=== PATIENT | female | born 1960 | race Two or more races ===

== ENCOUNTER 2020-10-04 16:46 | Inpatient (IN) | payer MEDICAID ==
[~2020-10-04] VITALS: Ht 160 cm; Wt 94.3 kg
--- NOTE | 2020-10-04 17:22 | NUR ---
[facility] B[facility]. NON VERBAL. VENT AND TRACH. BED BOUND. BROUGHT IN FOR COFFEE GROUND EMEMSIS AND BLACK TARRY STOOL. PT IS NOTED WITH DRIED COFFEEGROUND EMESIS ON HER CHEEK. PT ALSO PRESENTED WITH BLACK TARRY STOOL. PT IS NOTED WITH EDEMA ON HER EXTREMETIES. PT IS A VENT DEPENDENT, GT INTACT. WAS AT THE BEDSIDE FOR EVAL. PT ALREADY HAVE A MID LINE ON HER KATHI AND IV LINE ON RFA. PT IN ON MONITOR.
--- NOTE | 2020-10-04 18:22 | NUR ---
DRU, DAUGHTER UPDATTED REGARDING PT
[2020-10-04] MEDS ORDERED: NA P133E RC (18:25)
[2020-10-04] MEDS ORDERED: INSU100V7 SQ (18:25)
[2020-10-04] MEDS ORDERED: MIDO5TAB4 GT (18:25)
[2020-10-04] MEDS ORDERED: BISA10SU11 RC (18:25)
[2020-10-04] MEDS ORDERED: ENOX40DI SQ (18:25)
[2020-10-04] MEDS ORDERED: CHLO473M5 MM (18:25)
[2020-10-04] MEDS ORDERED: FAMO20TA8 GT (18:25)
[2020-10-04] MEDS ORDERED: CEFT2.5V IV (18:25)
[2020-10-04] MEDS ORDERED: INSU100V39 SQ (18:25)
[2020-10-04] MEDS ORDERED: MAGN400O6 GT (18:25)
[2020-10-04] MEDS ORDERED: SENN-261 GT (18:25)
[2020-10-04] MEDS ORDERED: NUT.237L31 GT (18:25)
[2020-10-04] MEDS ORDERED: ACET-868 GT (18:25)
[2020-10-04] MEDS ORDERED: CRAN3875 GT (18:25)
[2020-10-04] MEDS ORDERED: MULT-447 GT (18:25)
[2020-10-04] MEDS ORDERED: IPRA4AER IH ×2 (18:25)
[2020-10-04] MEDS ORDERED: ASCO-352 GT (18:25)
[2020-10-04] MEDS ORDERED: ACET-2605 GT (18:25)
[2020-10-04] MEDS ORDERED: LORA-258 GT (18:25)
[2020-10-04] MEDS ORDERED: ZINC1CAP2 GT (18:25)
[2020-10-04 18:59] LABS: BASOPHILS % (AUTO) 0.7 % (0.0-2.0); EOSINOPHILS % (AUTO) 2.9 % (0.0-6.0); HEMATOCRIT 24 % (33-45); HEMOGLOBIN 7.8 g/dL (11.5-14.8); LYMPHOCYTES # (AUTO) 0.9 /CMM (0.8-4.8); LYMPHOCYTES % (AUTO) 14.1 % (20.0-44.0); MEAN CORPUSCULAR HGB CONC 32 g/dl (31.0-36.0); MEAN CORPUSCULAR VOLUME 102 fL (82-100); MONOCYTES # (AUTO) 0.7 /CMM (0.1-1.30); MONOCYTES % (AUTO) 10.5 % (2.0-12.0); NEUTROPHILS # (AUTO) 4.8 /CMM (1.8-8.9); NEUTROPHILS % (AUTO) 71.8 % (43.0-81.0); PLATELET COUNT (AUTO) 117 /CMM (150-450); RED BLOOD CELL COUNT(AUTO) 2.35 MIL/uL (4.0-5.2); WHITE BLOOD COUNT (AUTO) 6.6 K/uL (4.3-11.0)
[2020-10-04] MEDS ORDERED: IV NS 0.9% 500 ML BAG IV ONE ×2 (19:30→21:30)
[2020-10-04 19:46] LABS: CALCIUM, SERUM 8.3 mg/dL (8.5-10.1); POTASSIUM 4.4 mmol/L (3.5-5.1)
[2020-10-04 19:51] LABS: BILIRUBIN,DIRECT 0.1 mg/dL (0.0-0.2); BILIRUBIN,TOTAL 0.3 mg/dL (0.2-1.0); TOTAL PROTEIN, SERUM 5.2 g/dL (6.4-8.2)
[2020-10-04 19:54] LABS: ALBUMIN 1.2 g/dL (3.4-5.0)
--- NOTE | 2020-10-04 20:07 | NUR ---
RT pt received on mechanical vent with current vent settings. trached, shiley 5 xlt. vent plugged in to red outlet. alarms on and audible. airway patent. trach care performed. trach tie secure. brown secretions suctioned via trach, pt vomited yard spotter. no sob, no resp distress. will continue to monitor
[2020-10-04] MEDS ORDERED: CEFEPIME 1 GM VIAL IM STA (20:29)
[2020-10-04] MEDS ORDERED: VANCOMYCIN 1 GM in IV D5W 250 ML IV PRN (20:30)
[2020-10-04] MEDS ORDERED: CEFTRIAXONE 1 G in IV D5W 50 ML IV SCH (20:30)
--- NOTE | 2020-10-04 20:30 | NUR ---
REC'D NEG COVID RESULTS. AWARE
[2020-10-04 20:33] LABS: EOSINOPHILS % (MANUAL) 3 % (0-4); LYMPHOCYTES % (MANUAL) 11 % (16-48); MONOCYTES % (MANUAL) 12 % (0-11.0); NEUTROPHILS % (MANUAL) 74 (42-76)
[2020-10-04] MEDS ORDERED: CEFEPIME 1 GM VIAL ONE (20:44)
[2020-10-04] MEDS ORDERED: CEFEPIME 1 GM in IV D5W 50 ML IV STA (20:45)
[2020-10-04] MEDS ORDERED: MAG HYDROX/AL HYDROX/SIMETH 30 ML UDC PO PRN (21:00)
[2020-10-04] MEDS ORDERED: DEXTROSE 50%-WATER 50 ML DISP.SYRIN IV PRN (21:00)
[2020-10-04] MEDS ORDERED: BISACODYL SUPP (10 MG) 10 MG/SUPP.RECT SUPP.RECT RC PRN (21:00)
[2020-10-04] MEDS ORDERED: Z GUARD REMEDY 2 OZ OINT TP PRN (21:00)
[2020-10-04] MEDS ORDERED: MAGNESIUM HYDROXIDE 30 ML UDC GT PRN (21:00)
[2020-10-04] MEDS ORDERED: ACETAMINOPHEN 325 MG TABLET PO PRN (21:00)
[2020-10-04] MEDS ORDERED: CEFTAZIDIME/AVIBACTAM 2.5 GM VIAL IV SCH (21:00)
[2020-10-04] MEDS ORDERED: MORPHINE SULFATE INJ 2 MG/ML DISP.SYRIN IV PRN (21:00)
[2020-10-04] MEDS ORDERED: MAGNESIUM HYDROXIDE 30 ML UDC PO PRN (21:00)
[2020-10-04] MEDS ORDERED: ACETAMINOPHEN ES 500 MG TABLET PO PRN (21:00)
[2020-10-04] MEDS ORDERED: ACETAMINOPHEN 325 MG TABLET MC PRN (21:00)
[2020-10-04] MEDS ORDERED: NA PHOS,M-B/NA PHOS,DI-BA 1 EA ENEMA RC PRN (21:00)
[2020-10-04] MEDS ORDERED: MEROPENEM 500 MG in IV NS 0.9% 50 ML IV SCH (21:06)
--- NOTE | 2020-10-04 21:38 | NUR ---
MID LINE INSERTED BY DIANE PICC LINE NURSE.
--- NOTE | 2020-10-04 21:40 | NUR ---
BLOOD CULTURE DRAWN AND SENT TO LAB
[2020-10-04] MEDS ORDERED: PANTOPRAZOLE 40 MG VIAL ONE (21:42)
[2020-10-04] MEDS: PANTOPRAZOLE 40 MG VIAL IV SCH (21:51)
[2020-10-04] MEDS: IV D5/0.45 NACL 1,000 ML IV SCH (21:51)
[2020-10-04] MEDS: SENNOSIDES 8.6 MG TABLET GT SCH (22:00)
[2020-10-04] MEDS: BLOOD SUGAR DIAGNOSTIC 1 EACH STRIP VI SCH (22:21)
[2020-10-04] MEDS: MEROPENEM 1 G in IV NS 0.9% 100 ML IV SCH (22:25)
[2020-10-04] MEDS: *INSULIN REGULAR(HUMULIN R)HUM 100 UNIT/ML VIAL SQ PRN (22:43)
[2020-10-05] MEDS ORDERED: IPRATROPIUM/ALBUTEROL INHALER IH SCH
--- NOTE | 2020-10-05 01:56 | NUR ---
D/C COMBIVENT PER SAKINA TORSION SPRING COILING MACHINE SETTER. MEDICATION NOT COMPATIBLE, PT ON VENT.
[2020-10-05 04:14] LABS: BASOPHILS % (AUTO) 0.6 % (0.0-2.0); EOSINOPHILS % (AUTO) 1.5 % (0.0-6.0); HEMATOCRIT 25 % (33-45); HEMOGLOBIN 8.1 g/dL (11.5-14.8); LYMPHOCYTES # (AUTO) 0.9 /CMM (0.8-4.8); LYMPHOCYTES % (AUTO) 12.7 % (20.0-44.0); MEAN CORPUSCULAR HGB CONC 33 g/dl (31.0-36.0); MEAN CORPUSCULAR VOLUME 102 fL (82-100); MONOCYTES # (AUTO) 0.7 /CMM (0.1-1.30); MONOCYTES % (AUTO) 10.2 % (2.0-12.0); NEUTROPHILS # (AUTO) 5.1 /CMM (1.8-8.9); PLATELET COUNT (AUTO) 114 /CMM (150-450); RED BLOOD CELL COUNT(AUTO) 2.45 MIL/uL (4.0-5.2); WHITE BLOOD COUNT (AUTO) 6.9 K/uL (4.3-11.0)
[2020-10-05 04:30] LABS: CALCIUM, SERUM 8.3 mg/dL (8.5-10.1); CREATININE 1.1 mg/dL (0.6-1.3); PHOSPHORUS 2.3 mg/dL (2.5-4.9); POTASSIUM 3.9 mmol/L (3.5-5.1)
--- NOTE | 2020-10-05 05:44 | NUR ---
BED ASSIGNMENT 110
[2020-10-05] MEDS: CEFTAZIDIME 1 G in IV D5W 50 ML IV SCH ×3 (06:19→20:59)
[2020-10-05] MEDS: IV D5/0.45 NACL 1,000 ML IV SCH ×2 (06:56→17:08)
--- NOTE | 2020-10-05 07:19 | NUR ---
REPORT GIVEN ZACH BEAULIEU FOR DOLLY.
--- NOTE | 2020-10-05 07:27 | NUR ---
REPORT GIVEN TO AFTAB BEAULIEU FOR DOLLY PT WILL BE TRANSPORTED TO 1ST FLOOR
[2020-10-05 08:00] VITALS: BP 130/58
--- NOTE | 2020-10-05 08:00 | NUR ---
CARE TRANSITION MGR ADMITTING NOTES RECEIVED PATIENT FROM ER, DX. ABDOMINAL PAIN, AWAKE ALERT, MOUTH WORDS, WITH SHILEY 5 TRACH TO MECHANICAL VENT, SETTING AC 20 TV 450 FIO2 50% PEEP 5, BREATHING EVEN AND UNLABORED, O2 SATURATION 100%. SINUS RHYTHM ON MONITOR, NO SIGNS OF PAIN OR ANY DISCOMFORT, WITH KATHI MIDLINE G 20, SITE CLEAR. RIGHT FOREARM IV ACCESS, FLUSHES WELL, SITE CLEAR. SEE NURSING FLOWSHEET FOR SKIN ISSUES, PHOTOS TAKEN, FOR WOUND CONSULT, GT CLAMPED AT THIS TIME, CHECKED FOR PLACEMENT, 0 RESIDUAL, FOELY CATH IN PLACE WITH CLOUDY RED TINGED URINE OUTPUT, ADEQUATE AMOUNT. WILL TURN AND REPOSITION Q 2 HOURS. OFF LOADING. BED LOW LOCKED, CALL LIGHT WITHIN REACHED, SAFETY MEASURES IN PLACE. WILL CONT TO MONITOR.
[2020-10-05] MEDS: ZINC SULFATE 220 MG CAPSULE GT SCH (09:34)
[2020-10-05] MEDS: BLOOD SUGAR DIAGNOSTIC 1 EACH STRIP VI SCH ×4 (09:34→22:15)
[2020-10-05] MEDS: MIDODRINE HCL (5MG) 5 MG TABLET GT SCH ×3 (09:34→16:39)
[2020-10-05] MEDS: DEXAMETHASONE SOD PHOSPHATE 10 MG/ML VIAL IV SCH (09:35)
[2020-10-05] MEDS: ASCORBIC ACID 500 MG TABLET GT SCH (09:35)
[2020-10-05] MEDS: PANTOPRAZOLE 40 MG VIAL IV SCH ×2 (09:36→20:59)
[2020-10-05] MEDS ORDERED: GLUCERNA 1.2 1,000 ML BOTTLE NG PRN (10:00)
--- NOTE | 2020-10-05 10:45 | NUR ---
RN NOTES DR. AWAD AT BEDSIDE FOR GI CONSULT. WILL WAIT FOR CT SCAN OF ABDOMEN RESULT. START GT FEEDING ORDERED. NPO POST MIDNIGHT FOR POSSIBLE EGD TOMORROW.
[2020-10-05] MEDS: MEROPENEM 1 G in IV NS 0.9% 100 ML IV SCH ×2 (12:10→18:19)
[2020-10-05] MEDS ORDERED: NEUTRA PHOS 1 POWD.PACKET NG ONE (13:30)
[2020-10-05] MEDS ORDERED: IOHEXOL-300 100 ML VIAL IV ONE (13:36)
[2020-10-05] MEDS ORDERED: IV NS 0.9% 250 ML IV ONE (13:36)
[2020-10-05] MEDS: INSULIN REGULAR, HUMAN 100 UNIT/ML 3 ML VIAL SQ PRN (16:51)
--- NOTE | 2020-10-05 18:42 | NUR ---
HAND WEAVER CLOSING NOTES PATIENT RESTING IN BED, COMFORTABLE, ALL NEEDS MET AND ATTENDED. NO PAIN/SOB, PM CARE DONE. NO OTHER SIGNIFICANT CHANGE DURING THE SHIFT. SAFETY MEASURES IN PLACE. BED LOW AND LOCKED. CALL LIGHT WITHIN REACH, WILL ENDORSE TO NEXT SHIFT FOR DOLLY.
[2020-10-05 19:49] LABS: BASOPHILS % (AUTO) 0.2 % (0.0-2.0); HEMATOCRIT 27 % (33-45); HEMOGLOBIN 8.9 g/dL (11.5-14.8); LYMPHOCYTES # (AUTO) 0.8 /CMM (0.8-4.8); LYMPHOCYTES % (AUTO) 9.6 % (20.0-44.0); MEAN CORPUSCULAR HGB CONC 33 g/dl (31.0-36.0); MEAN CORPUSCULAR VOLUME 101 fL (82-100); MONOCYTES # (AUTO) 0.3 /CMM (0.1-1.30); MONOCYTES % (AUTO) 3.7 % (2.0-12.0); NEUTROPHILS # (AUTO) 6.8 /CMM (1.8-8.9); NEUTROPHILS % (AUTO) 86.5 % (43.0-81.0); PLATELET COUNT (AUTO) 128 /CMM (150-450); RED BLOOD CELL COUNT(AUTO) 2.65 MIL/uL (4.0-5.2); WHITE BLOOD COUNT (AUTO) 7.8 K/uL (4.3-11.0)
[2020-10-05 20:00] VITALS: BP 131/71
--- NOTE | 2020-10-05 20:10 | NUR ---
RT pt received on mechanical vent with current vent settings. trached, shiley 5 xlt. vent plugged in to red outlet. alarms on and audible. airway patent. trach tie secure. ambu bag at hob. spare trach at bed, trach size shiley 6 xlt for emergency. no sob, no resp distress. will continue to monitor
--- NOTE | 2020-10-05 20:12 | NUR ---
RN NOTE PATIENT IN BED WITH HOB ELEVATED. ALERT, NONVEREBAL/MOUTH WORDS. ON MECHANICAL VENT, TOLERATING SETTINGS WELL. SINUS RHYTHM ON MONITOR. NO SIGNS OF PAIN OR ANY DISCOMFORT. WITH KATHI ML #20 AND RFA PATENT AND INTACT. WITH VANEGAS CATH, PATENT AND INTACT. WITH GTUBE PATENT AND INTACT, RUNNING GLUCERNA 1.5 @10ML/HR. BED LOCKED AND IN LOWEST POSITION. SAFETY MEASURES IN PLACE PER HOSPITAL PROTOCOL. CALL LIGHT WITHIN REACH. WILL CONTINUE TO MONITOR.
[2020-10-05] MEDS: SENNOSIDES 8.6 MG TABLET GT SCH (21:00)
[2020-10-05] MEDS: *INSULIN REGULAR(HUMULIN R)HUM 100 UNIT/ML VIAL SQ PRN (22:18)
[2020-10-06] VITALS (7 sets, daily range): BP systolic 113–133; BP diastolic 49–61
--- NOTE | 2020-10-06 00:09 | NUR ---
flush g-tube 250cc held, pt is NPO POST MIDNIGHT for possible EGD. continues on D5 08/28 NS @100ML/HR. will continue to monitor. Addendum: 10/06/20 at 0011 by ALBERTO DONIS RN Amended: Links added.
[2020-10-06] MEDS: MEROPENEM 1 G in IV NS 0.9% 100 ML IV SCH ×3 (03:00→19:45)
[2020-10-06] MEDS: IV D5/0.45 NACL 1,000 ML IV SCH ×2 (04:41→12:29)
[2020-10-06] MEDS: CEFTAZIDIME 1 G in IV D5W 50 ML IV SCH ×3 (05:14→21:19)
--- NOTE | 2020-10-06 06:00 | NUR ---
HELD FLUSHING, PT NPO FOR POSSIBLE EGD. WILL CONTINUE TO MONITOR. Addendum: 10/06/20 at 0747 by ALBERTO DONIS RN Amended: Links added.
[2020-10-06 06:52] LABS: BASOPHILS % (AUTO) 0.2 % (0.0-2.0); EOSINOPHILS % (AUTO) 0.1 % (0.0-6.0); HEMATOCRIT 27 % (33-45); HEMOGLOBIN 8.9 g/dL (11.5-14.8); LYMPHOCYTES # (AUTO) 1.1 /CMM (0.8-4.8); LYMPHOCYTES % (AUTO) 11.4 % (20.0-44.0); MEAN CORPUSCULAR HGB CONC 33 g/dl (31.0-36.0); MEAN CORPUSCULAR VOLUME 103 fL (82-100); MONOCYTES % (AUTO) 10.2 % (2.0-12.0); NEUTROPHILS # (AUTO) 7.7 /CMM (1.8-8.9); NEUTROPHILS % (AUTO) 78.1 % (43.0-81.0); PLATELET COUNT (AUTO) 147 /CMM (150-450); RED BLOOD CELL COUNT(AUTO) 2.63 MIL/uL (4.0-5.2); WHITE BLOOD COUNT (AUTO) 9.9 K/uL (4.3-11.0)
[2020-10-06] MEDS: BLOOD SUGAR DIAGNOSTIC 1 EACH STRIP VI SCH ×4 (07:30→21:53)
--- NOTE | 2020-10-06 07:30 | NUR ---
RN OPENING NOTES RECEIVED PT IN BED, AWAKE. NONVERBAL/MOUTH WORDS. ON MECHANICAL VENT, TOLERATING SETTINGS WELL. SR ON MONITOR. NO SIGNS OF PAIN OR ANY DISCOMFORT. KATHI MIDLINE #20 AND R FA BOTH PATENT AND INTACT. WITH VANEGAS CATH IN PLACE. WITH GTUBE PATENT AND INTACT. CLAMPED. SAFETY MEASURES IN PLACE. CALL LIGHT WITHIN REACH. BED LOCKED AND IN LOWEST POSITION. WILL CONTINUE TO MONITOR.
[2020-10-06 07:45] LABS: CALCIUM, SERUM 8.4 mg/dL (8.5-10.1); CREATININE 1.3 mg/dL (0.6-1.3); PHOSPHORUS 3.4 mg/dL (2.5-4.9); POTASSIUM 3.8 mmol/L (3.5-5.1)
--- NOTE | 2020-10-06 07:49 | NUR ---
RN NOTE PATIENT AWAKE AND RESPONSIVE. NO SOB OR ANY DISTRESS. NO S/S OF DISCOMFORT. ALL DUE MEDS GIVEN ORDERED AND TOLERATED WELL. ALL NEEDS ATTENDED PROMPTLY. CALL LIGHT WITHIN REACH. SIDE RAILS UPX2. SAFETY MEASURES IMPLEMENTED. ENDORSED TO ONCOMING SHIFT.
[2020-10-06] MEDS: ASCORBIC ACID 500 MG TABLET GT SCH (09:00)
[2020-10-06] MEDS: ZINC SULFATE 220 MG CAPSULE GT SCH (09:00)
[2020-10-06] MEDS: MIDODRINE HCL (5MG) 5 MG TABLET GT SCH ×3 (09:00→17:26)
[2020-10-06] MEDS: DEXAMETHASONE SOD PHOSPHATE 10 MG/ML VIAL IV SCH (09:22)
[2020-10-06] MEDS: PANTOPRAZOLE 40 MG VIAL IV SCH ×2 (09:22→21:19)
[2020-10-06] MEDS: INSULIN REGULAR, HUMAN 100 UNIT/ML 3 ML VIAL SQ PRN ×3 (09:27→18:14)
--- NOTE | 2020-10-06 18:59 | NUR ---
RN OPENING NOTE PATIENT RESTING IN BED. NO SOB OR ANY DISTRESS. NO SIGNS PAIN OR DISCOMFORT. ALL DUE MEDS GIVEN. ALL NEEDS ATTENDED. SAFETY MEASURES IMPLEMENTED. CALL LIGHT WITHIN REACH. SIDE RAILS UPX2. ENDORSED TO NIGHT NURSE FOR DOLLY. Addendum: 10/06/20 at 1901 by ARABELLA MILLARD RN CLOSING NOTES
--- NOTE | 2020-10-06 20:49 | NUR ---
RN NOTE PATIENT NON VERBAL/ MOUTH WORDS. ON MECH VENT, TOLERATING SETTINGS WELL. NO SOB OR ANY DISTRESS. TELE MONITOR ON, SR. WITH GLUCERNA 1.2 @ 20ML/HR, PATENT AND INTACT. HOB KEPT ELEVATED. WITH KATHI MID AND RFA WITH D5 1/2 NS @ 100ML/HR. KEPT CLEAN AND DRY. VANEGAS CATH DRAINING YELLOW URINE TO GRAVITY. CALL LIGHT WITHIN REACH. SIDE RAILS UPX2. WILL CONTINUE TO MONITOR.
[2020-10-06] MEDS: SENNOSIDES 8.6 MG TABLET GT SCH (21:18)
[2020-10-06] MEDS: *INSULIN REGULAR(HUMULIN R)HUM 100 UNIT/ML VIAL SQ PRN (21:54)
--- NOTE | 2020-10-06 22:25 | NUR ---
2225 TRANSFERRED TO ROOM 326-1 ON ACLS PROTOCOL. PATIENT AWAKE AND RESPONSIVE TO SIMPLE VERBAL COMMANDS.
--- NOTE | 2020-10-06 22:30 | NUR ---
COMPUTER ART INSTRUCTOR NOTES RECEIVED TRANSFER FROM [facility] BY VIA ACLS PROTOCOL,REPORT GIVEN BY NURSE ASSIGNED NAME RICHARD CHAN A/O X3,MOUTH WORDS.ON TRACH TO VENT,SETTINGS TOLERATED WELL.GT FEEDING OF GLUCERNA INFUSING AT 2OML/HR RATE TOLERATED WELL.NOTED 5ML RESIDUAL VOLUME.GOAL OF 40.WITH RIGHT UPPER ARM MIDLINE FOR IV AND MEDS,NOTED PITTING EDEMA ON BOTHE UPPER AND LOWER EXTREMITIES.GT SITE CLEAN AND DRY.HOV ELEVATED AT 40 DEGREES AT ALL TIME.GT FLUSHING INITIATED.WILL CONTINUE TO MONITOR.
[2020-10-07] VITALS (7 sets, daily range): BP systolic 107–123; BP diastolic 53–59
[2020-10-07] MEDS: IV D5/0.45 NACL 1,000 ML IV SCH ×3 (00:48→19:00)
[2020-10-07] MEDS: MEROPENEM 1 G in IV NS 0.9% 100 ML IV SCH ×3 (02:53→18:01)
[2020-10-07] MEDS: CEFTAZIDIME 1 G in IV D5W 50 ML IV SCH ×3 (05:20→20:53)
--- NOTE | 2020-10-07 06:15 | NUR ---
FARM MACHINERY ERECTOR NOTES ACCU-CHECK BLOOD SUGAR CHECK 319,COVERED WITH HUMULIN R 12UNITS PER MODERATE SLIDING SCALE.
[2020-10-07] MEDS: BLOOD SUGAR DIAGNOSTIC 1 EACH STRIP VI SCH ×4 (06:16→21:38)
[2020-10-07] MEDS: INSULIN REGULAR, HUMAN 100 UNIT/ML 3 ML VIAL SQ PRN (06:20)
--- NOTE | 2020-10-07 07:08 | NUR ---
LOCKSTITCH FRONT EDGE TAPE SEWER NOTES SR ON TELE MONITOR,VENT SETTINGS TOLERATED WELL,GT FEEDING TOLERATED WELL,HOB ELEVATED AT ALL TIMES FOR ASPIRATION PRECAUTION.REPOSITIONED PER PROTOCOL.IN NO ACUTE DISTRESS.
[2020-10-07 07:30] LABS: BASOPHILS % (AUTO) 0.4 % (0.0-2.0); EOSINOPHILS % (AUTO) 1.1 % (0.0-6.0); HEMATOCRIT 25 % (33-45); HEMOGLOBIN 8.3 g/dL (11.5-14.8); LYMPHOCYTES # (AUTO) 1.1 /CMM (0.8-4.8); LYMPHOCYTES % (AUTO) 10.6 % (20.0-44.0); MEAN CORPUSCULAR HGB CONC 33 g/dl (31.0-36.0); MEAN CORPUSCULAR VOLUME 105 fL (82-100); MONOCYTES # (AUTO) 0.7 /CMM (0.1-1.30); MONOCYTES % (AUTO) 6.7 % (2.0-12.0); NEUTROPHILS # (AUTO) 8.4 /CMM (1.8-8.9); NEUTROPHILS % (AUTO) 81.2 % (43.0-81.0); PLATELET COUNT (AUTO) 131 /CMM (150-450); WHITE BLOOD COUNT (AUTO) 10.3 K/uL (4.3-11.0)
[2020-10-07 07:38] LABS: CREATININE 1.3 mg/dL (0.6-1.3); POTASSIUM 3.5 mmol/L (3.5-5.1)
[2020-10-07] MEDS: ZINC SULFATE 220 MG CAPSULE GT SCH (09:15)
[2020-10-07] MEDS: ASCORBIC ACID 500 MG TABLET GT SCH (09:15)
[2020-10-07] MEDS: PANTOPRAZOLE 40 MG VIAL IV SCH ×2 (09:16→20:53)
[2020-10-07] MEDS: MIDODRINE HCL (5MG) 5 MG TABLET GT SCH ×3 (09:16→17:02)
[2020-10-07] MEDS: *INSULIN REGULAR(HUMULIN R)HUM 100 UNIT/ML VIAL SQ PRN ×3 (12:42→21:47)
[2020-10-07 13:19] LABS: BAND % (MANUAL) 5 % (0.0-5.0); LYMPHOCYTES % (MANUAL) 12 % (16-48); MONOCYTES % (MANUAL) 4 % (0-11.0); NEUTROPHILS % (MANUAL) 79 (42-76)
--- NOTE | 2020-10-07 19:04 | NUR ---
CHIEF ACCOUNTING OFFICER CLOSING NOTES PATIENT RESTING IN BED, COMFORTABLE, ALL NEEDS MET AND ATTENDED. NO PAIN/SOB, PM CARE DONE. NO OTHER SIGNIFICANT CHANGE DURING THE SHIFT. SAFETY MEASURES IN PLACE. BED LOCKED AND IN LOWEST POSITION. CALL LIGHT WITHIN REACH, WILL ENDORSE TO NEXT SHIFT.
--- NOTE | 2020-10-07 19:40 | NUR ---
MIDDLE SCHOOL MUSIC TEACHER NOTES RECEIVED ON BED,NON VERBAL,ON TRACH TO VENT,SETTINGS TOLERATED WELL,NOTED PITTING EDEMA ON BOTH UPPER AND LOWER EXTREMITIES.VANEGAS CATH IN PLACE DRAING YELLOWISH OUTPUT.IVF INFUSING WELL ON KATHI MIDLINE,SITE PATENT.WITH GR FEEDING OF GLUCERNA AT 40ML/HR RATE,TO FLUSH WITH 250ML WATER Q 6 HOURS.NO RESIDUAL VOLUME NOTED.WILL CONTINUE TO MONITOR.
[2020-10-07] MEDS: SENNOSIDES 8.6 MG TABLET GT SCH (21:37)
--- NOTE | 2020-10-07 22:00 | NUR ---
REPAIRING CALIBRATOR NOTES ACCU-CHECK BLOOD SUGAR CHECK 190,COVERED WITH HUMULIN R 3 UNITS PER SLIDING SCALE.GT FEEDING IN PROGRESS,FLUSHED WITH WATER 250ML ORDERED.HOB ELEVATED FOR ASPIRATION PRECAUTION.
[2020-10-08] VITALS (7 sets, daily range): BP systolic 123–148; BP diastolic 55–67
[2020-10-08] MEDS: MEROPENEM 1 G in IV NS 0.9% 100 ML IV SCH ×3 (02:25→20:14)
[2020-10-08] MEDS: BLOOD SUGAR DIAGNOSTIC 1 EACH STRIP VI SCH ×4 (05:22→22:09)
[2020-10-08] MEDS: CEFTAZIDIME 1 G in IV D5W 50 ML IV SCH ×3 (05:22→21:30)
[2020-10-08] MEDS: INSULIN REGULAR, HUMAN 100 UNIT/ML 3 ML VIAL SQ PRN (05:41)
--- NOTE | 2020-10-08 05:55 | NUR ---
MS RN NOTES ACCU-CHECK BLOOD SUGAR CHECK 185,NO INSULIN COVERAGE,GOING FOR EGD.
[2020-10-08] MEDS: IV D5/0.45 NACL 1,000 ML IV SCH (06:46)
--- NOTE | 2020-10-08 07:05 | NUR ---
MS RN NOTES STARTED NPO POST MIDNIGHT FOR EGD TODAY,CONSENT OBTAINED FROM SON MARIA GUADALUPE.IVF INFUSING.REPOSITION PER PROTOCOL. NO S/S OF BLEEDING NOTED.IN NO ACUTE DISTRESS.
[2020-10-08 07:50] LABS: BASOPHILS % (AUTO) 0.3 % (0.0-2.0); EOSINOPHILS % (AUTO) 1.9 % (0.0-6.0); HEMATOCRIT 26 % (33-45); HEMOGLOBIN 8.6 g/dL (11.5-14.8); LYMPHOCYTES # (AUTO) 0.9 /CMM (0.8-4.8); LYMPHOCYTES % (AUTO) 9.3 % (20.0-44.0); MEAN CORPUSCULAR HGB CONC 34 g/dl (31.0-36.0); MEAN CORPUSCULAR VOLUME 102 fL (82-100); MONOCYTES # (AUTO) 0.5 /CMM (0.1-1.30); MONOCYTES % (AUTO) 4.9 % (2.0-12.0); NEUTROPHILS # (AUTO) 8.4 /CMM (1.8-8.9); NEUTROPHILS % (AUTO) 83.6 % (43.0-81.0); PLATELET COUNT (AUTO) 106 /CMM (150-450); RED BLOOD CELL COUNT(AUTO) 2.54 MIL/uL (4.0-5.2); WHITE BLOOD COUNT (AUTO) 10.1 K/uL (4.3-11.0)
--- NOTE | 2020-10-08 08:00 | NUR ---
RN OPENING NOTE PT IS A/O X2. ABLE TO BE AROUSED BY NAME AND IS ABLE TO RESPOND TO NURSE QUESTIONS VIA NODDING/SHAKING HEAD. TRACH PRESENT. O2 SAT BETWEEN 95-100% AND NO RESPIRATORY DISTRESS PRESENT. SINUS RHYTHM RECORDED BY ETERNAL MONITOR. F/C PRESENT AND DRAINING WITH CLEAR YELLOW FLUID. CURRENTLY BEDBOUND. ABDOMINAL SCARS AND SACRAL WOUND PRESENT. MIDLINE PRESENT IN RIGHT UPPER ARM. SAFETY MEASURES IN PLACE. SIDE RAILS RAISED. BED LOWERED. CALL LIGHT WITHIN REACH. WILL CONTINUE TO MONITOR.
[2020-10-08 08:15] LABS: CALCIUM, SERUM 7.9 mg/dL (8.5-10.1); CREATININE 1.3 mg/dL (0.6-1.3); POTASSIUM 3.3 mmol/L (3.5-5.1)
[2020-10-08] MEDS: ZINC SULFATE 220 MG CAPSULE GT SCH (09:00)
[2020-10-08] MEDS: ASCORBIC ACID 500 MG TABLET GT SCH (09:00)
[2020-10-08] MEDS: MIDODRINE HCL (5MG) 5 MG TABLET GT SCH ×3 (09:00→17:00)
[2020-10-08] MEDS: PANTOPRAZOLE 40 MG VIAL IV SCH ×2 (09:14→21:28)
[2020-10-08] MEDS: POTASSIUM CL. PREMIX PERIPHER. 50 ML IV SCH ×3 (09:14→15:43)
[2020-10-08] MEDS: HYDROGEL DRESSING 90 GM TUBE TP SCH (10:00)
--- NOTE | 2020-10-08 10:00 | NUR ---
WOUND CARRE CONSULT: PT PRESENTS WITH SACRAL STAGE 3 ULCER, PRESENT ON ADMISSION. RECOMMENDATIONS MADE FOR SKIN PROTECTION AND WOUND CARE. DISCUSSED WITH NURSING STAFF. DR LENNIE DERAS NOTIFIED OF SURGICAL CONSULT REQUEST. IN AGREEMENT WITH PLAN OF CARE.
[2020-10-08] MEDS ORDERED: MIDAZOLAM HCL 2 MG/2ML VIAL ONE (14:38)
--- NOTE | 2020-10-08 15:30 | NUR ---
RN NOTE EGD DONE BY DR. AWAD. PT V/S STABLE WILL CONTINUE TO MONITOR.
[2020-10-08] MEDS ORDERED: GLUCERNA 1.2 1,000 ML BOTTLE NG SCH (16:30)
[2020-10-08] MEDS: GLUCERNA 1.2 1,000 ML BOTTLE GT PRN (17:45)
[2020-10-08] MEDS: *INSULIN REGULAR(HUMULIN R)HUM 100 UNIT/ML VIAL SQ PRN ×2 (17:50→22:12)
[2020-10-08] MEDS: MICAFUNGIN SODIUM 100 MG in IV NS 0.9% 100 ML IV SCH (18:41)
--- NOTE | 2020-10-08 18:59 | NUR ---
RN CLOSING NOTE PT IS A/O X2. ABLE TO BE AROUSED BY NAME AND IS ABLE TO RESPOND TO NURSE QUESTIONS VIA NODDING/SHAKING HEAD. TRACH PRESENT. O2 SAT BETWEEN 95-100% AND NO RESPIRATORY DISTRESS PRESENT. SINUS RHYTHM RECORDED BY ETERNAL MONITOR. F/C PRESENT AND DRAINING WITH CLEAR YELLOW FLUID. CURRENTLY BEDBOUND. ABDOMINAL SCARS AND SACRAL WOUND PRESENT. MIDLINE PRESENT IN RIGHT UPPER ARM. SAFETY MEASURES IN PLACE. SIDE RAILS RAISED. BED LOWERED. CALL LIGHT WITHIN REACH. ROUTINE MEDS GIVEN. REPORT GIVEN TO NIGHT NURSE.
--- NOTE | 2020-10-08 19:46 | NUR ---
RN OPENING NOTE PATIENT RECEIVED BEDSIDE. PT IS A/O X1-2. ABLE TO BE AROUSED BY NAME AND IS ABLE TO RESPOND TO NURSE QUESTIONS VIA NODDING/SHAKING HEAD. TRACH PRESENT. AC 20, TV 450, PEEP 5. O2 SAT BETWEEN 95-100% AND NO RESPIRATORY DISTRESS PRESENT. SINUS RHYTHM RECORDED BY ETERNAL MONITOR. F/C PRESENT AND DRAINING WITH CLEAR YELLOW FLUID. CURRENTLY BEDBOUND. ABDOMINAL SCARS AND SACRAL WOUND PRESENT. MIDLINE PRESENT IN RIGHT UPPER ARM. G TUBE INTACT, DRY, CLEAN DRESSING. RUNNING GLUCERNA @ 40 CC/ HR. EGD TODAY WITH MD AWAD. FOUND ESOPHAGEAL VARICES. SAFETY MEASURES IN PLACE. SIDE RAILS RAISED. BED LOWERED. CALL LIGHT WITHIN REACH. ROUTINE MEDS GIVEN. WILL CONTINUE TO MONITOR. WILL CONTINUE PLAN OF CARE.
[2020-10-08] MEDS: SENNOSIDES 8.6 MG TABLET GT SCH (21:28)
[2020-10-09] VITALS: BP 128/68
[2020-10-09] MEDS: MEROPENEM 1 G in IV NS 0.9% 100 ML IV SCH ×3 (03:13→19:33)
[2020-10-09 04:00] VITALS: BP 142/71
[2020-10-09] MEDS: CEFTAZIDIME 1 G in IV D5W 50 ML IV SCH ×2 (04:32→12:59)
[2020-10-09] MEDS: BLOOD SUGAR DIAGNOSTIC 1 EACH STRIP VI SCH ×4 (06:32→22:17)
[2020-10-09] MEDS: *INSULIN REGULAR(HUMULIN R)HUM 100 UNIT/ML VIAL SQ PRN ×2 (06:34→22:20)
--- NOTE | 2020-10-09 07:04 | NUR ---
RN CLOSING NOTE PATIENT LYING IN BED. PT IS A/O X1-2. ABLE TO BE AROUSED BY NAME AND IS ABLE TO RESPOND TO NURSE QUESTIONS VIA NODDING/SHAKING HEAD. PRIMARY LANGUAGE IS MALTESE. TRACH PRESENT. SHILEY 5, AC 20, TV 450, PEEP 5. O2 SAT BETWEEN 95-100% AND NO RESPIRATORY DISTRESS PRESENT. SINUS RHYTHM RECORDED BY ETERNAL MONITOR. F/C PRESENT AND DRAINING WITH CLEAR YELLOW FLUID. DRAINED 540 ML. CURRENTLY BEDBOUND. ABDOMINAL SCARS AND SACRAL WOUND PRESENT. MIDLINE PRESENT IN RIGHT UPPER ARM. G TUBE INTACT, DRY, CLEAN DRESSING. RUNNING GLUCERNA @ 40 CC/ HR. SAFETY MEASURES IN PLACE. SIDE RAILS RAISED. BED LOWERED. CALL LIGHT WITHIN REACH. ROUTINE MEDS GIVEN. WILL CONTINUE TO MONITOR. WILL CONTINUE PLAN OF CARE. WILL ENDORSE TO UPCOMING SHIFT.
--- NOTE | 2020-10-09 07:06 | NUR ---
RN OPENING NOTE RECEIVED PT RESTING COMFORTABLY IN BED AT THIS TIME. NON VERBAL, PT ABLE TO MOUTH WORDS. NO SOB NOTED, NO S/S OF ANY ACUTE DISTRESS NOTED, NO C/O PAIN AT THIS TIME. PT NOTED EXTERNAL NURSING EDUCATION CONSULTANT READING SR 79, PT ON MECHANICAL VENT WITH SETTINGS, EKTA #5, AC 20, FIO2 @40%, PEEP 5, . VANEGAS CATHETER IN PLACE, DRAINING TO GRAVITY CLOUDY TEA COLORED URINE OUTPUT. GT NOTED WITH NO RESIDUAL. KATHI MIDLINE IN PLACE, INTACT PATENT AND FLUSHING WELL. ASPIRATIONS AND SAFETY PRECAUTIONS IN PLACE AND MAINTAINED AT ALL TIMES. BED IN LOWEST LOCKED POSITION, SIDE RAILS UP, HOB ELEVATED, TABLE AND CALL LIGHT WITHIN REACH. WILL CONTINUE TO MONITOR.
[2020-10-09 07:42] LABS: BASOPHILS % (AUTO) 0.2 % (0.0-2.0); EOSINOPHILS % (AUTO) 2.3 % (0.0-6.0); HEMATOCRIT 28 % (33-45); HEMOGLOBIN 9.1 g/dL (11.5-14.8); LYMPHOCYTES # (AUTO) 1.1 /CMM (0.8-4.8); MEAN CORPUSCULAR HGB CONC 33 g/dl (31.0-36.0); MEAN CORPUSCULAR VOLUME 103 fL (82-100); MONOCYTES # (AUTO) 0.7 /CMM (0.1-1.30); MONOCYTES % (AUTO) 5.8 % (2.0-12.0); NEUTROPHILS # (AUTO) 9.8 /CMM (1.8-8.9); NEUTROPHILS % (AUTO) 82.7 % (43.0-81.0); PLATELET COUNT (AUTO) 98 /CMM (150-450); RED BLOOD CELL COUNT(AUTO) 2.72 MIL/uL (4.0-5.2); WHITE BLOOD COUNT (AUTO) 11.9 K/uL (4.3-11.0)
[2020-10-09 08:00] VITALS: BP 118/64
[2020-10-09 08:04] LABS: CALCIUM, SERUM 8.1 mg/dL (8.5-10.1); CREATININE 1.2 mg/dL (0.6-1.3); POTASSIUM 3.9 mmol/L (3.5-5.1)
[2020-10-09] MEDS: ASCORBIC ACID 500 MG TABLET GT SCH (09:02)
[2020-10-09] MEDS: MIDODRINE HCL (5MG) 5 MG TABLET GT SCH ×3 (09:03→16:38)
[2020-10-09] MEDS: IV D5/0.45 NACL 1,000 ML IV PRN (09:04)
[2020-10-09] MEDS: HYDROGEL DRESSING 90 GM TUBE TP SCH (09:05)
[2020-10-09] MEDS: ZINC SULFATE 220 MG CAPSULE GT SCH (09:05)
[2020-10-09] MEDS: PANTOPRAZOLE 40 MG VIAL IV SCH ×2 (09:05→21:45)
[2020-10-09] MEDS ORDERED: FUROSEMIDE 20 MG/2 ML VIAL IV ONE (09:30)
[2020-10-09 10:24] LABS: BAND % (MANUAL) 1 % (0.0-5.0); EOSINOPHILS % (MANUAL) 3 % (0-4); LYMPHOCYTES % (MANUAL) 7 % (16-48); MONOCYTES % (MANUAL) 5 % (0-11.0); NEUTROPHILS % (MANUAL) 84 (42-76)
[2020-10-09] MEDS: INSULIN REGULAR, HUMAN 100 UNIT/ML 3 ML VIAL SQ PRN ×2 (12:06→16:55)
[2020-10-09] MEDS: GLUCERNA 1.2 1,000 ML BOTTLE GT PRN (14:25)
[2020-10-09 16:00] VITALS: BP 130/71
[2020-10-09] MEDS: MICAFUNGIN SODIUM 100 MG in IV NS 0.9% 100 ML IV SCH (17:45)
--- NOTE | 2020-10-09 19:10 | NUR ---
RN CLOSING NOTES PT AWAKE IN BED AT THIS TIME. PT REMAINED STABLE THROUGHOUT SHIFT. PT REMAINED STABLE. ALL CARE, NEED, MEDICATIONS AND TREATMENT ADMINISTERED ANTICIPATED PER ORDER. PT REPOSITION Q2H AND PRN. TRACH CARE PROVIDED AND PT SUCTIONED PRN. VANEGAS CATHETER CARE PROVIDED AND OUTPUT RECORDED. PT TOLERATED GT FEEDING WELL, WITH NO RESIDUAL NOTED. ASPIRATION, RESPIRATION AND SAFETY PRECAUTION IN PLACE AND MAINTAINED AT ALL TIMES. BED IN LOWEST LOCKED POSITION, HOB ELEVATED, SIDE RAILS UP X 2, CALL LIGHT AND TABLE WITHIN REACH. WILL ENDORSE TO ELECTRONIC WARFARE OFFICER NURSE FOR DOLLY
--- NOTE | 2020-10-09 19:50 | NUR ---
RN OPENING NOTE PATIENT RECEIVED BEDSIDE. PT IS A/O X1-2. ABLE TO BE AROUSED BY NAME AND IS ABLE TO RESPOND TO NURSE QUESTIONS VIA NODDING/SHAKING HEAD. TRACH PRESENT. SHILEY 5, AC 20, TV 450, PEEP 5 FIO2 40%. O2 SAT BETWEEN 95-100% AND NO RESPIRATORY DISTRESS PRESENT. SINUS RHYTHM RECORDED BY ETERNAL MONITOR. F/C PRESENT AND DRAINING WITH CLEAR YELLOW FLUID. CURRENTLY BEDBOUND. ABDOMINAL SCARS AND SACRAL WOUND PRESENT. MIDLINE PRESENT IN RIGHT UPPER ARM. LOWER ABDOMINAL FOLDS WEEPING. WILL ASSESS. G TUBE INTACT, DRY, CLEAN DRESSING. RUNNING GLUCERNA @ 50 CC/ HR. EGD RESULTS = ESOPHAGEAL VARICES. NO PROCEDURES SCHEDULED FOR TOMORROW WILL CONTINUE TO ASSESS. SAFETY MEASURES IN PLACE. SIDE RAILS RAISED. BED LOWERED. CALL LIGHT WITHIN REACH. WILL CONTINUE TO MONITOR. WILL CONTINUE PLAN OF CARE.
[2020-10-09 20:00] VITALS: BP 146/73
[2020-10-09] MEDS: SENNOSIDES 8.6 MG TABLET GT SCH (21:45)
[2020-10-10] VITALS: BP 144/71
[2020-10-10] MEDS: MEROPENEM 1 G in IV NS 0.9% 100 ML IV SCH ×3 (03:18→18:06)
[2020-10-10 04:00] VITALS: BP 145/71
[2020-10-10 06:25] LABS: BASOPHILS # (AUTO) 0.1 /CMM (0.0-0.2); BASOPHILS % (AUTO) 0.4 % (0.0-2.0); EOSINOPHILS % (AUTO) 2.6 % (0.0-6.0); HEMATOCRIT 30 % (33-45); HEMOGLOBIN 9.5 g/dL (11.5-14.8); LYMPHOCYTES # (AUTO) 1.1 /CMM (0.8-4.8); LYMPHOCYTES % (AUTO) 7.5 % (20.0-44.0); MEAN CORPUSCULAR HGB CONC 32 g/dl (31.0-36.0); MEAN CORPUSCULAR VOLUME 104 fL (82-100); MONOCYTES # (AUTO) 0.9 /CMM (0.1-1.30); MONOCYTES % (AUTO) 6.2 % (2.0-12.0); NEUTROPHILS # (AUTO) 12.1 /CMM (1.8-8.9); NEUTROPHILS % (AUTO) 83.3 % (43.0-81.0); PLATELET COUNT (AUTO) 95 /CMM (150-450); RED BLOOD CELL COUNT(AUTO) 2.85 MIL/uL (4.0-5.2); WHITE BLOOD COUNT (AUTO) 14.5 K/uL (4.3-11.0)
[2020-10-10] MEDS: BLOOD SUGAR DIAGNOSTIC 1 EACH STRIP VI SCH ×4 (06:37→21:49)
[2020-10-10] MEDS: *INSULIN REGULAR(HUMULIN R)HUM 100 UNIT/ML VIAL SQ PRN ×2 (06:39→21:50)
[2020-10-10 07:02] LABS: CALCIUM, SERUM 7.9 mg/dL (8.5-10.1); CREATININE 1.2 mg/dL (0.6-1.3); POTASSIUM 3.9 mmol/L (3.5-5.1)
--- NOTE | 2020-10-10 07:33 | NUR ---
AQUATICS GROUP FITNESS INSTRUCTOR OPENING NOTES RECEIVED PT AWAKE IN BED IN NO ACUTE SIGNS OF DISTRESS. HOB ELEVATED. A/O X1-2. NON-VERBAL, RESPONDS BY NODDING AND SHAKING HEAD. PT WITH TRACH CONNECTED TO MECHANICAL VENT: SHILEY #6, AC 20, TV 450, FIO2 40% AND PEEP 5, TOLERATING SETTINGS WELL AND SATURATING AT 98-100% AT THIS TIME. CARDIAC EXTERNAL MONITOR SHOWS NSR WITH HR ON THE 80'S, NO C/O CARDIAC DISTRESS NOTED. MIDLINE IN KATHI IN PLACE WITH IVF RUNNING ORDERED. G-TUBE IN PLACE WITH FEEDING OF GLUCERNA 1.2 RUNNING @ 50 ML/HR AT THIS TIME. ASPIRATION PRECAUTIONS MAINTAINED. VANEGAS IN PLACE DRAINING CLEAR YELLOW URINE BY GRAVITY. SAFETY MEASURES IN PLACE: BED IN LOWEST LOCKED POSITION, SIDE RAILS UP X2 AND CALL LIGHT WITHIN REACH. WILL CONTINUE TO MONITOR.
--- NOTE | 2020-10-10 07:35 | NUR ---
RN CLOSING NOTE PATIENT LAYING IN BED. PT IS A/O X1-2. ABLE TO BE AROUSED BY NAME AND IS ABLE TO RESPOND TO NURSE QUESTIONS VIA NODDING/SHAKING HEAD. TRACH PRESENT. SHILEY 5, AC 20, TV 450, PEEP 5 FIO2 40%. O2 SAT BETWEEN 95-100% AND NO RESPIRATORY DISTRESS PRESENT. SINUS RHYTHM RECORDED BY ETERNAL MONITOR. F/C PRESENT AND DRAINING WITH CLEAR YELLOW FLUID. CURRENTLY BEDBOUND. ABDOMINAL SCARS AND SACRAL WOUND PRESENT. MIDLINE PRESENT IN RIGHT UPPER ARM. LOWER ABDOMINAL FOLDS WEEPING. WILL ASSESS. G TUBE INTACT, DRY, CLEAN DRESSING. RUNNING GLUCERNA @ 50 CC/ HR. SAFETY MEASURES IN PLACE. SIDE RAILS RAISED. BED LOWERED. CALL LIGHT WITHIN REACH. WILL CONTINUE TO MONITOR. WILL ENDORSE TO UPCOMING SHIFT./ WILL CONTINUE PLAN OF CARE. Addendum: 10/10/20 at 0841 by SHILOH BURTON RN CORRECTION: PT WITH TRIPLE LUMEN PICC LINE ON KATHI AND NOT MIDLINE.
[2020-10-10 08:00] VITALS: BP 145/77
[2020-10-10] MEDS: ASCORBIC ACID 500 MG TABLET GT SCH (09:05)
[2020-10-10] MEDS: ZINC SULFATE 220 MG CAPSULE GT SCH (09:05)
[2020-10-10] MEDS: PANTOPRAZOLE 40 MG VIAL IV SCH ×2 (09:05→21:49)
[2020-10-10] MEDS: MIDODRINE HCL (5MG) 5 MG TABLET GT SCH ×3 (09:06→16:33)
[2020-10-10] MEDS: HYDROGEL DRESSING 90 GM TUBE TP SCH (09:18)
--- NOTE | 2020-10-10 10:02 | NUR ---
RN NOTES PT SEEN BY DR GRAHAM. PT WAS CONFUSED AND TRIED TO PULLED OUT HIS TRACH. DR GRAHAM WITH ORDER TO PUT PT ON SOFT WRIST RESTRAINTS. WILL CARRY OUT ORDER.. Addendum: 10/10/20 at 1837 by SHILOH BURTON RN ERROR: NOTES IS FOR ANOTHER PT.
[2020-10-10] MEDS: CARVEDILOL 3.125 MG TABLET GT SCH ×2 (10:09→16:33)
[2020-10-10] MEDS ORDERED: ALBUTEROL HALF STRENGTH 1.25 MG/3 ML VIAL.NEB NEB SCH (11:00)
[2020-10-10] MEDS ORDERED: LORAZEPAM INJ 2 MG/ML VIAL IVP PRN (11:00)
[2020-10-10] MEDS: ALBUTEROL HALF STRENGTH 1.25 MG/3 ML VIAL.NEB NEB SCH ×5 (11:30→23:28)
[2020-10-10] MEDS: INSULIN REGULAR, HUMAN 100 UNIT/ML 3 ML VIAL SQ PRN ×2 (11:32→17:53)
[2020-10-10] MEDS: IPRATROPIUM NEB FS 0.5 MG/2.5 ML AMPUL.NEB NEB SCH ×4 (12:00→23:28)
[2020-10-10 12:01] VITALS: BP 143/74
[2020-10-10 16:00] VITALS: BP 115/66
[2020-10-10] MEDS: MICAFUNGIN SODIUM 100 MG in IV NS 0.9% 100 ML IV SCH (16:05)
[2020-10-10] MEDS: IV D5/0.45 NACL 1,000 ML IV PRN (18:15)
[2020-10-10] MEDS: GLUCERNA 1.2 1,000 ML BOTTLE GT PRN (18:16)
--- NOTE | 2020-10-10 18:34 | NUR ---
SALES AGENT CLOSING NOTES PT IN BED LYING AT MODERATE HIGH BACKREST POSITION. A/O X1-2. ALBANIAN. NON-VERBAL, RESPONDS BY NODDING AND SHAKING HEAD. PT WITH TRACH CONNECTED TO MECHANICAL VENT: SHILEY #5 XLT, AC 20, TV 450, FIO2 40% AND PEEP 5, TOLERATING SETTINGS WELL AND SATURATING AT 97-100%. CARDIAC EXTERNAL MONITOR SHOWS NSR WITH HR ON THE 80'S, NO C/O CARDIAC DISTRESS NOTED. KATHI MIDLINE INTACT WITH IVF RUNNING ORDERED. G-TUBE IN PLACE WITH FEEDING OF GLUCERNA 1.2 RUNNING @ 60 ML/HR, TOLERATING WELL. ASPIRATION PRECAUTIONS MAINTAINED. VANEGAS IN PLACE DRAINING CLEAR YELLOW URINE BY GRAVITY. PT TURNED AND REPOSITIONED Q 2HRS AND PRN. KEPT CLEAN, DRY AND COMFORTABLE. SAFETY MEASURES IN PLACE: BED IN LOWEST LOCKED POSITION, SIDE RAILS UP X2 AND CALL LIGHT WITHIN REACH. WILL ENDORSE DOLLY TO NIGHT NURSE.
--- NOTE | 2020-10-10 19:30 | NUR ---
STOCK PARTS FABRICATOR OPENING NOTES PT IN BED AT SEMI-FOWLERS POSITION; A/O X1-2. BARBADIAN SPEAKING. NON-VERBAL, MOUTHS WORDS. PT NOTED WITH MECHANICAL VENT: SHILEY #5 XLT, AC 20, TV 450, FIO2 40% AND PEEP 5, TOLERATING SETTINGS WELL AND SATURATING AT 97-100%. CARDIAC EXTERNAL MONITOR READS NSR WITH HR ON THE 80'S, NO C/O CARDIAC DISTRESS NOTED. KATHI MIDLINE PATENT AND INTACT; D5 1/2NS @ 50ML/HR. RAC #20G PATENT AND INTACT. G-TUBE IN PLACE WITH FEEDING OF GLUCERNA 1.2 RUNNING @ 50 ML/HR, TOLERATING WELL. ASPIRATION PRECAUTIONS MAINTAINED. VANEGAS IN PLACE DRAINING CLEAR ORANGE COLORED URINE. SAFETY MEASURES IN PLACE: BED IN LOWEST LOCKED POSITION, SIDE RAILS UPX3, CALL LIGHT WITHIN REACH, BED ALARM ON. WILL CONTINUE PLAN OF CARE.
[2020-10-10 20:00] VITALS: BP 139/61
[2020-10-10] MEDS: SENNOSIDES 8.6 MG TABLET GT SCH (21:49)
[2020-10-11] VITALS: BP 133/59
[2020-10-11] MEDS: MEROPENEM 1 G in IV NS 0.9% 100 ML IV SCH ×3 (03:21→18:43)
[2020-10-11] MEDS: IPRATROPIUM NEB FS 0.5 MG/2.5 ML AMPUL.NEB NEB SCH ×6 (03:37→23:47)
[2020-10-11] MEDS: ALBUTEROL HALF STRENGTH 1.25 MG/3 ML VIAL.NEB NEB SCH ×6 (03:37→23:47)
[2020-10-11 04:00] VITALS: BP 130/64
--- NOTE | 2020-10-11 04:56 | NUR ---
AIRCRAFT LIFE SUPPORT FITTER CLOSING NOTES PT IN BED AT SEMI-FOWLERS POSITION; A/O X1-2. FRENCH SPEAKING. NON-VERBAL, MOUTHS WORDS. PT NOTED WITH MECHANICAL VENT: SHILEY #5 XLT, AC 20, TV 450, FIO2 40% AND PEEP 5, TOLERATING SETTINGS WELL AND SATURATING AT 97-100%. CARDIAC EXTERNAL MONITOR READS NSR WITH HR ON THE 80'S, NO C/O CARDIAC DISTRESS NOTED. KATHI MIDLINE PATENT AND INTACT; D5 1/2NS @ 50ML/HR. RAC #20G PATENT AND INTACT. G-TUBE IN PLACE WITH FEEDING OF GLUCERNA 1.2 RUNNING @ 50 ML/HR, TOLERATING WELL. ASPIRATION PRECAUTIONS MAINTAINED. VANEGAS IN PLACE DRAINING CLEAR ORANGE COLORED URINE. SAFETY MEASURES IN PLACE: BED IN LOWEST LOCKED POSITION, SIDE RAILS UPX3, CALL LIGHT WITHIN REACH, BED ALARM ON. WILL CONTINUE PLAN OF CARE.
[2020-10-11] MEDS: BLOOD SUGAR DIAGNOSTIC 1 EACH STRIP VI SCH ×4 (06:47→21:22)
[2020-10-11] MEDS: INSULIN REGULAR, HUMAN 100 UNIT/ML 3 ML VIAL SQ PRN ×4 (06:48→17:59)
[2020-10-11 07:23] LABS: BASOPHILS # (AUTO) 0.1 /CMM (0.0-0.2); BASOPHILS % (AUTO) 0.4 % (0.0-2.0); EOSINOPHILS % (AUTO) 3.5 % (0.0-6.0); HEMATOCRIT 32 % (33-45); HEMOGLOBIN 10.4 g/dL (11.5-14.8); LYMPHOCYTES # (AUTO) 0.7 /CMM (0.8-4.8); LYMPHOCYTES % (AUTO) 5.2 % (20.0-44.0); MEAN CORPUSCULAR HGB CONC 33 g/dl (31.0-36.0); MEAN CORPUSCULAR VOLUME 101 fL (82-100); MONOCYTES # (AUTO) 0.3 /CMM (0.1-1.30); NEUTROPHILS # (AUTO) 12.6 /CMM (1.8-8.9); NEUTROPHILS % (AUTO) 88.9 % (43.0-81.0); PLATELET COUNT (AUTO) 106 /CMM (150-450); RED BLOOD CELL COUNT(AUTO) 3.13 MIL/uL (4.0-5.2); WHITE BLOOD COUNT (AUTO) 14.2 K/uL (4.3-11.0)
--- NOTE | 2020-10-11 07:34 | NUR ---
SUEDING MACHINE OPERATOR OPENING NOTES PATIENT RECEIVED AWAKE IN BED IN NO ACUTE SIGNS OF DISTRESS. HOB ELEVATED. A/O X1-2. NON-VERBAL, RESPONDS BY NODDING AND SHAKING HEAD. PT WITH TRACH CONNECTED TO MECHANICAL VENT: SHILEY #5, AC 20, TV 450, FIO2 40% AND PEEP 5, TOLERATING SETTINGS WELL WITH NO SOB NOTED. CARDIAC EXTERNAL MONITOR SHOWS NSR WITH HR OF 72 AT THIS TIME, NO C/O CARDIAC DISTRESS NOTED. MIDLINE IN KATHI IN PLACE WITH IVF RUNNING ORDERED. IV SL ON RAC G#20INTACT AND PATENT. G-TUBE IN PLACE WITH GLUCERNA 1.2 FEEDING RUNNING @ 50 ML/HR AT THIS TIME, TOLERATING WELL. ASPIRATION PRECAUTIONS MAINTAINED. VANEGAS IN PLACE DRAINING CLEAR YELLOW URINE BY GRAVITY. SAFETY MEASURES IN PLACE: BED IN LOWEST LOCKED POSITION, SIDE RAILS UP X2 AND CALL LIGHT WITHIN REACH. WILL CONTINUE TO MONITOR
[2020-10-11 08:04] VITALS: BP 132/66
[2020-10-11 08:23] LABS: CALCIUM, SERUM 8.6 mg/dL (8.5-10.1); POTASSIUM 3.7 mmol/L (3.5-5.1)
[2020-10-11] MEDS: ASCORBIC ACID 500 MG TABLET GT SCH (09:22)
[2020-10-11] MEDS: ZINC SULFATE 220 MG CAPSULE GT SCH (09:22)
[2020-10-11] MEDS: CARVEDILOL 3.125 MG TABLET GT SCH ×2 (09:22→16:20)
[2020-10-11] MEDS: PANTOPRAZOLE 40 MG VIAL IV SCH ×2 (09:22→21:19)
[2020-10-11] MEDS: MIDODRINE HCL (5MG) 5 MG TABLET GT SCH ×3 (09:22→16:20)
[2020-10-11] MEDS: HYDROGEL DRESSING 90 GM TUBE TP PRN ×2 (09:28→09:29)
[2020-10-11] MEDS: HYDROGEL DRESSING 90 GM TUBE TP SCH (09:30)
[2020-10-11 12:08] VITALS: BP 126/69
--- NOTE | 2020-10-11 12:24 | NUR ---
BRISKET PULLER NOTE CALLED [facility]. SPOKE TO COR[facility] FROM MEDICAL RECORDS. PT HAS NO RECORD OF PNEUMOVAC AND FLU VACCINE. WILL ADMINISTER TO PT PRIOR TO DISCHARGE. WILL ENDORSE.
--- NOTE | 2020-10-11 16:09 | NUR ---
RN NOTES CT OF CHEST W/O CONTRAST DONE. AWAITING FOR RESULTS
[2020-10-11] MEDS: MICAFUNGIN SODIUM 100 MG in IV NS 0.9% 100 ML IV SCH (16:21)
--- NOTE | 2020-10-11 18:36 | NUR ---
RN NOTES RECEIVED CALL FROM RADIOLOGIST REGARDING RESULTS OF CT OF CHEST W/O CONTRAST. RESULTS SENT TO DR GRAHAM, AWAITING FOR RESPONSE. WILL ENDORSE TO NEXT SHIFT NURSE.
--- NOTE | 2020-10-11 18:52 | NUR ---
RED HAT LINUX ENGINEER CLOSING NOTES PT IN BED AWAKE AND LYING AT MODERATE HIGH BACKREST POSITION. A/O X1-2. TAJIK. NON-VERBAL, RESPONDS BY NODDING AND SHAKING HEAD. PT WITH TRACH CONNECTED TO MECHANICAL VENT AT PRESCRIBED SETTINGS, NO SOB NOTED DURING THE DAY. CARDIAC EXTERNAL MONITOR SHOWS NSR WITH HR ON THE 80'S AT THIS TIME, NO C/O CARDIAC DISTRESS NOTED. KATHI MIDLINE INTACT WITH IVF RUNNING ORDERED. G-TUBE IN PLACE, FEEDING OF GLUCERNA 1.2 RUNNING @ 60 ML/HR, TOLERATING WELL. ASPIRATION PRECAUTIONS MAINTAINED. VANEGAS IN PLACE DRAINING CLEAR YELLOW URINE BY GRAVITY. PT TURNED AND REPOSITIONED Q 2HRS AND PRN. KEPT CLEAN, DRY AND COMFORTABLE. SAFETY MEASURES IN PLACE: BED IN LOWEST LOCKED POSITION, SIDE RAILS UP X2 AND CALL LIGHT WITHIN REACH. WILL ENDORSE DOLLY TO NIGHT NURSE.
--- NOTE | 2020-10-11 19:57 | NUR ---
PEDIATRIC DIETICIAN OPENING NOTES PT IN BED AT SEMI-FOWLERS POSITION; A/O X3. SINHALA SPEAKING. NON-VERBAL, MOUTHS WORDS. PT NOTED WITH MECHANICAL VENT: SHILEY #5 XLT, AC 20, TV 450, FIO2 40% AND PEEP 5, TOLERATING SETTINGS WELL AND SATURATING AT 97-100%. CARDIAC EXTERNAL MONITOR READS NSR WITH HR ON THE 80'S, NO C/O CARDIAC DISTRESS NOTED. KATHI MIDLINE PATENT AND INTACT; D5 1/2NS @ 50ML/HR. RAC #20G PATENT AND INTACT. G-TUBE IN PLACE WITH FEEDING OF GLUCERNA 1.2 RUNNING @ 60 ML/HR, TOLERATING WELL. ASPIRATION PRECAUTIONS MAINTAINED. VANEGAS IN PLACE DRAINING DARK YELLOW COLORED URINE. NO S/S OF PAIN OR DISTRESS AT THIS TIME. SAFETY MEASURES IN PLACE: BED IN LOWEST LOCKED POSITION, SIDE RAILS UPX3, CALL LIGHT WITHIN REACH, BED ALARM ON. WILL CONTINUE PLAN OF CARE.
[2020-10-11 20:00] VITALS: BP 143/73
[2020-10-11] MEDS: SENNOSIDES 8.6 MG TABLET GT SCH (21:20)
[2020-10-11] MEDS: *INSULIN REGULAR(HUMULIN R)HUM 100 UNIT/ML VIAL SQ PRN (21:22)
[2020-10-12] VITALS: BP 118/77
[2020-10-12] MEDS: IV D5/0.45 NACL 1,000 ML IV PRN (00:44)
[2020-10-12] MEDS: MEROPENEM 1 G in IV NS 0.9% 100 ML IV SCH ×3 (03:15→19:55)
[2020-10-12] MEDS: GLUCERNA 1.2 1,000 ML BOTTLE GT PRN (03:30)
[2020-10-12] MEDS: IPRATROPIUM NEB FS 0.5 MG/2.5 ML AMPUL.NEB NEB SCH ×6 (03:48→23:21)
[2020-10-12] MEDS: ALBUTEROL HALF STRENGTH 1.25 MG/3 ML VIAL.NEB NEB SCH ×6 (03:48→23:21)
[2020-10-12 04:00] VITALS: BP 131/74
--- NOTE | 2020-10-12 06:18 | NUR ---
SLEEPING BAG FILLER CLOSING NOTES PT IN BED AT SEMI-FOWLERS POSITION; A/O X3. LITHUANIAN SPEAKING. NON-VERBAL, MOUTHS WORDS. PT NOTED WITH MECHANICAL VENT: SHILEY #6 XLT, AC 20, TV 450, FIO2 40% AND PEEP 5, TOLERATING SETTINGS WELL AND SATURATING AT 97-100%. CARDIAC EXTERNAL MONITOR READS NSR WITH HR ON THE 70'S, NO C/O CARDIAC DISTRESS NOTED. KATHI MIDLINE PATENT AND INTACT; D5 1/2NS @ 50ML/HR. RAC #20G PATENT AND INTACT. G-TUBE IN PLACE WITH FEEDING OF GLUCERNA 1.2 RUNNING @ 60 ML/HR, TOLERATING WELL. ASPIRATION PRECAUTIONS MAINTAINED. VANEGAS IN PLACE DRAINING DARK YELLOW COLORED URINE. SAFETY MEASURES IN PLACE: BED IN LOWEST LOCKED POSITION, SIDE RAILS UPX3, CALL LIGHT WITHIN REACH, BED ALARM ON. WILL ENDORSE DOLLY TO ONCOMING MORNING RN.
[2020-10-12] MEDS: BLOOD SUGAR DIAGNOSTIC 1 EACH STRIP VI SCH ×4 (06:32→22:19)
[2020-10-12] MEDS: INSULIN REGULAR, HUMAN 100 UNIT/ML 3 ML VIAL SQ PRN ×3 (06:39→18:38)
--- NOTE | 2020-10-12 07:15 | NUR ---
AUTOMATIC SPREADER OPERATOR OPENING NOTES PATIENT IN BED AWAKE. A/O X2-3, SERBIAN-SPEAKING. NON-VERBAL, MOUTHS WORDS. ON TRACH AND VENT W/ SETTINGS TOLERATED WELL, NO SOB NOTED. ON TELE MONITOR W/ READING OF SR, HR IN THE 80'S, NO C/O CARDIAC DISTRESS NOTED. KATHI MIDLINE PATENT AND INTACT. G-TUBE IN PLACE WITH FEEDING OF GLUCERNA 1.2, NO ASPIRATION NOTED. VANEGAS CATH IN PLACE, YELLOW COLORED URINE. SAFETY MEASURES IN PLACE. WILL CONTINUE TO MONITOR.
[2020-10-12 07:34] LABS: BASOPHILS % (AUTO) 0.2 % (0.0-2.0); EOSINOPHILS % (AUTO) 0.7 % (0.0-6.0); HEMATOCRIT 31 % (33-45); LYMPHOCYTES # (AUTO) 0.9 /CMM (0.8-4.8); LYMPHOCYTES % (AUTO) 4.5 % (20.0-44.0); MEAN CORPUSCULAR HGB CONC 33 g/dl (31.0-36.0); MEAN CORPUSCULAR VOLUME 102 fL (82-100); MONOCYTES # (AUTO) 0.8 /CMM (0.1-1.30); MONOCYTES % (AUTO) 3.8 % (2.0-12.0); NEUTROPHILS # (AUTO) 18.1 /CMM (1.8-8.9); NEUTROPHILS % (AUTO) 90.8 % (43.0-81.0); PLATELET COUNT (AUTO) 98 /CMM (150-450); RED BLOOD CELL COUNT(AUTO) 3.01 MIL/uL (4.0-5.2)
[2020-10-12 07:55] LABS: CALCIUM, SERUM 8.2 mg/dL (8.5-10.1); POTASSIUM 3.8 mmol/L (3.5-5.1)
[2020-10-12 08:00] VITALS: BP 118/65
[2020-10-12] MEDS: MIDODRINE HCL (5MG) 5 MG TABLET GT SCH ×3 (09:13→17:13)
[2020-10-12] MEDS: ZINC SULFATE 220 MG CAPSULE GT SCH (09:14)
[2020-10-12] MEDS: HYDROGEL DRESSING 90 GM TUBE TP SCH (09:14)
[2020-10-12] MEDS: CARVEDILOL 3.125 MG TABLET GT SCH ×2 (09:14→17:13)
[2020-10-12] MEDS: ASCORBIC ACID 500 MG TABLET GT SCH (09:14)
[2020-10-12] MEDS: PANTOPRAZOLE 40 MG VIAL IV SCH ×2 (09:14→21:50)
--- NOTE | 2020-10-12 10:34 | NUR ---
RN NOTES TELEPHONE CONSENT OBTAINED FROM MARIA GUADALUPE, SON, FOR CT OF ABDOMEN/PELVIS W/ WATER-SOLUBLE ENTERIC CONTRAST, WITNESSED BY ANOTHER RN, YAIMA.
[2020-10-12] MEDS ORDERED: DIATR MEGLU/DIATRIZOATE SODIUM 30 ML BOTTLE (GASTROGRAPHIN) ONE (10:49)
[2020-10-12 11:18] LABS: BAND % (MANUAL) 2 % (0.0-5.0); EOSINOPHILS % (MANUAL) 1 % (0-4); LYMPHOCYTES % (MANUAL) 2 % (16-48); MONOCYTES % (MANUAL) 2 % (0-11.0); NEUTROPHILS % (MANUAL) 93 (42-76)
[2020-10-12 12:00] VITALS: BP 118/64
--- NOTE | 2020-10-12 13:40 | NUR ---
RN NOTES PATIENT PICKED UP FOR CT PROCEDURE, ACCOMPANIED BY ME, RT, AND 2 RADIOLOGY TECHS.
[2020-10-12] MEDS: DEXAMETHASONE SOD PHOSPHATE 10 MG/ML VIAL IV SCH (15:50)
[2020-10-12 16:00] VITALS: BP 120/76
[2020-10-12] MEDS: MICAFUNGIN SODIUM 100 MG in IV NS 0.9% 100 ML IV SCH (16:56)
--- NOTE | 2020-10-12 19:30 | NUR ---
PREVENTIVE MEDICINE OFFICER CLOSING NOTES PATIENT IN BED AWAKE. A/O X2-3, SINHALA-SPEAKING. NON-VERBAL, MOUTHS WORDS. ON TRACH AND VENT W/ SETTINGS TOLERATED WELL, NO SOB NOTED. ON TELE MONITOR W/ READING OF SR, HR IN THE 80'S, NO C/O CARDIAC DISTRESS NOTED. KATHI MIDLINE PATENT AND INTACT. G-TUBE IN PLACE WITH FEEDING OF GLUCERNA 1.2, NO ASPIRATION NOTED. HOB ELEVATED; SECRETIONS SUCTIONED PRN. S/P CT PROCEDURE TODAY, TOLERATED WELL BY PATIENT. VANEGAS CATH IN PLACE, YELLOW COLORED URINE. SAFETY MEASURES MAINTAINED. ENDORSED TO INDUSTRIAL COMMERCIAL GROUNDSKEEPER RN FOR DOLLY.
--- NOTE | 2020-10-12 19:50 | NUR ---
REGISTERED NURSE OBSTETRICS OPENING NOTES PT IN BED AT SEMI-FOWLERS POSITION; A/O X3. TURKISH SPEAKING. NON-VERBAL, MOUTHS WORDS. PT NOTED WITH MECHANICAL VENT: SHILEY #6 XLT, AC 20, TV 450, FIO2 40% AND PEEP 5, TOLERATING SETTINGS WELL AND SATURATING AT 97-100%. CARDIAC EXTERNAL MONITOR READS NSR WITH HR AT 85, NO C/O CARDIAC DISTRESS NOTED. KATHI MIDLINE PATENT AND INTACT; D5 1/2NS @ 50ML/HR. RAC #20G PATENT AND INTACT. G-TUBE IN PLACE WITH FEEDING OF GLUCERNA 1.2 RUNNING @ 60 ML/HR, TOLERATING WELL. ASPIRATION PRECAUTIONS MAINTAINED. VANEGAS IN PLACE DRAINING DARK YELLOW COLORED URINE. NO S/S OF PAIN OR DISTRESS AT THIS TIME. SAFETY MEASURES IN PLACE: BED IN LOWEST LOCKED POSITION, SIDE RAILS UPX3, CALL LIGHT WITHIN REACH, BED ALARM ON. WILL CONTINUE PLAN OF CARE.
[2020-10-12 20:00] VITALS: BP 128/60
[2020-10-12] MEDS: SENNOSIDES 8.6 MG TABLET GT SCH (21:50)
[2020-10-12] MEDS: *INSULIN REGULAR(HUMULIN R)HUM 100 UNIT/ML VIAL SQ PRN (21:53)
[2020-10-13] VITALS: BP 126/75
[2020-10-13] MEDS: MEROPENEM 1 G in IV NS 0.9% 100 ML IV SCH ×2 (02:29→11:18)
[2020-10-13] MEDS: HYDROCODONE/APAP 5/325MG TABLET PO PRN (02:50)
[2020-10-13] MEDS: ALBUTEROL HALF STRENGTH 1.25 MG/3 ML VIAL.NEB NEB SCH ×5 (03:27→20:16)
[2020-10-13] MEDS: IPRATROPIUM NEB FS 0.5 MG/2.5 ML AMPUL.NEB NEB SCH ×5 (03:27→20:16)
[2020-10-13 04:00] VITALS: BP 132/71
[2020-10-13] MEDS: BLOOD SUGAR DIAGNOSTIC 1 EACH STRIP VI SCH ×4 (06:51→22:00)
[2020-10-13] MEDS: INSULIN REGULAR, HUMAN 100 UNIT/ML 3 ML VIAL SQ PRN ×4 (06:53→18:42)
--- NOTE | 2020-10-13 07:15 | NUR ---
CREDIT FRONT OFFICE DEVELOPER NOTES PATIENT IN BED ALERT ORIENTED X 3. . NO ACUTE DISTRESS NOTED. BREATHING UNLABORED. IV ACCESS PATENT AND INTACT, NO REDNESS, NO SWELLING NOTED. ON VENT SET ON ORDERED DRESSING . GT TUBE INTACT WITH FEEDING ON GOING ON ORDERED SETTING. VANEGAS CATHETER INTACT. SAFETY MEASURES IN PLACE. CALL LIGHT WITHIN REACH. WILL CONTINUE TO MONITOR ACCORDINGLY.
[2020-10-13 07:32] LABS: BASOPHILS # (AUTO) 0.1 /CMM (0.0-0.2); BASOPHILS % (AUTO) 0.8 % (0.0-2.0); EOSINOPHILS % (AUTO) 2.8 % (0.0-6.0); HEMATOCRIT 30 % (33-45); LYMPHOCYTES # (AUTO) 0.9 /CMM (0.8-4.8); LYMPHOCYTES % (AUTO) 5.8 % (20.0-44.0); MEAN CORPUSCULAR HGB CONC 33 g/dl (31.0-36.0); MEAN CORPUSCULAR VOLUME 101 fL (82-100); MONOCYTES # (AUTO) 0.7 /CMM (0.1-1.30); MONOCYTES % (AUTO) 4.3 % (2.0-12.0); NEUTROPHILS # (AUTO) 13.9 /CMM (1.8-8.9); NEUTROPHILS % (AUTO) 86.3 % (43.0-81.0); PLATELET COUNT (AUTO) 93 /CMM (150-450); RED BLOOD CELL COUNT(AUTO) 2.94 MIL/uL (4.0-5.2); WHITE BLOOD COUNT (AUTO) 16.1 K/uL (4.3-11.0)
[2020-10-13] MEDS: GLUCERNA 1.2 1,000 ML BOTTLE GT PRN (07:36)
[2020-10-13 07:44] LABS: CALCIUM, SERUM 7.9 mg/dL (8.5-10.1); CREATININE 1.1 mg/dL (0.6-1.3)
[2020-10-13 08:00] VITALS: BP 138/76
[2020-10-13] MEDS: CARVEDILOL 3.125 MG TABLET GT SCH ×2 (08:28→17:01)
[2020-10-13] MEDS: DEXAMETHASONE SOD PHOSPHATE 10 MG/ML VIAL IV SCH (08:29)
[2020-10-13] MEDS: PANTOPRAZOLE 40 MG VIAL IV SCH (08:29)
[2020-10-13] MEDS: ZINC SULFATE 220 MG CAPSULE GT SCH (08:29)
[2020-10-13] MEDS: ASCORBIC ACID 500 MG TABLET GT SCH (08:29)
[2020-10-13] MEDS: HYDROGEL DRESSING 90 GM TUBE TP SCH (08:30)
[2020-10-13] MEDS: MIDODRINE HCL (5MG) 5 MG TABLET GT SCH ×3 (09:00→17:01)
--- NOTE | 2020-10-13 09:00 | NUR ---
TUBE MAKER NOTES HELD MIDODRINE BLOOD PRESSURE 132/74, DR CHRISTINA DOMINGO NOTIFIED, NO NEW ORDER MADE AT THIS TIME.
[2020-10-13] MEDS: IV D5/0.45 NACL 1,000 ML IV PRN (11:19)
[2020-10-13 12:00] VITALS: BP 156/77
[2020-10-13 12:33] LABS: BAND % (MANUAL) 1 % (0.0-5.0); LYMPHOCYTES % (MANUAL) 6 % (16-48); MONOCYTES % (MANUAL) 4 % (0-11.0); NEUTROPHILS % (MANUAL) 89 (42-76)
[2020-10-13 16:00] VITALS: BP 112/62
[2020-10-13] MEDS: MICAFUNGIN SODIUM 100 MG in IV NS 0.9% 100 ML IV SCH (17:02)
--- NOTE | 2020-10-13 19:00 | NUR ---
ANIMAL ANATOMY TEACHER NOTES PATIENT IN BED ALERT ORIENTED X 3. . NO ACUTE DISTRESS NOTED. BREATHING UNLABORED. IV ACCESS PATENT AND INTACT, NO REDNESS, NO SWELLING NOTED. ON VENT SET ON ORDERED DRESSING . GT TUBE INTACT WITH FEEDING ON GOING ON ORDERED SETTING. VANEGAS CATHETER INTACT. TURNED AND REPOSITIONED EVERY 2 HOURS AND WHEN NEEDED. NEEDS ATTENDED AND ANTICIPATED .SAFETY MEASURES IN PLACE. CALL LIGHT WITHIN REACH. WILL ENDORSE TO NIGHT NURSE FOR CONTINUITY OF CARE.
--- NOTE | 2020-10-13 19:28 | NUR ---
INSURANCE AGENTS SUPERVISOR: CONTINUITY OF CARE Patient in bed, awake. Trach intact, on mechanical vent. Sinus rhythm in the Tele monitor HR 75. KATHI PICC line, IVF infusing. Abdomen soft, rounded, and distended, no c/o abdominal pain. Gtube feeding at 60 ml/hr at goal rate. Villa cath in place. Fall precaution maintained.
[2020-10-13 20:00] VITALS: BP 135/80
[2020-10-13] MEDS: SENNOSIDES 8.6 MG TABLET GT SCH (21:24)
[2020-10-13] MEDS: PANTOPRAZOLE 40 MG/PACK PACK GT SCH (21:24)
--- NOTE | 2020-10-13 21:30 | NUR ---
TEST ENGINE MECHANIC: GASTRIC RESIDUAL 300 ml gastric residual, hold tube feeding, will reassess.
[2020-10-13] MEDS: *INSULIN REGULAR(HUMULIN R)HUM 100 UNIT/ML VIAL SQ PRN (23:28)
[2020-10-14] VITALS: BP 111/64
[2020-10-14] MEDS: IPRATROPIUM NEB FS 0.5 MG/2.5 ML AMPUL.NEB NEB SCH ×7 (00:06→22:36)
[2020-10-14] MEDS: ALBUTEROL HALF STRENGTH 1.25 MG/3 ML VIAL.NEB NEB SCH ×7 (00:06→22:36)
[2020-10-14 04:00] VITALS: BP 117/62
[2020-10-14 05:22] VITALS: BP 117/62
--- NOTE | 2020-10-14 06:21 | NUR ---
CHANGE ANALYST: END OF SHIFT REPORT Sinus rhythm HR 73 in the Tele monitor. On mechanical vent, Trach intact. IVF infusing, on IV Mycamine, afebrile. Dressing changed to sacrum, no c/o pain. Gastric residual improved 50ml. Resumed Gtube feeding at 2300. Planned for dc to SNF. Will endorse to oncoming RN.
[2020-10-14] MEDS: INSULIN REGULAR, HUMAN 100 UNIT/ML 3 ML VIAL SQ PRN ×3 (06:34→17:48)
[2020-10-14] MEDS: BLOOD SUGAR DIAGNOSTIC 1 EACH STRIP VI SCH ×4 (06:35→22:17)
[2020-10-14 08:00] VITALS: BP 136/73
--- NOTE | 2020-10-14 08:04 | NUR ---
TELE/RN OPENING NOTES RECEIVED PATIENT ON BED AWAKE ALERT AND ORIENTED X3. PATIENT IS ON TRACH AND VENT DEPENDENT AT THE PRESCRIBED SETTINGS. NO SIGN AND SYMPTOM OF PAIN NOTED AT THIS TIME. WILL CONTINUE TO MONITOR.
[2020-10-14] MEDS: IV D5/0.45 NACL 1,000 ML IV PRN ×2 (08:25→08:26)
[2020-10-14] MEDS: MIDODRINE HCL (5MG) 5 MG TABLET GT SCH ×3 (08:38→17:00)
[2020-10-14] MEDS: ZINC SULFATE 220 MG CAPSULE GT SCH (08:38)
[2020-10-14] MEDS: DEXAMETHASONE SOD PHOSPHATE 10 MG/ML VIAL IV SCH (08:39)
[2020-10-14] MEDS: CARVEDILOL 3.125 MG TABLET GT SCH ×2 (08:39→17:20)
[2020-10-14] MEDS: ASCORBIC ACID 500 MG TABLET GT SCH (08:40)
[2020-10-14] MEDS: PANTOPRAZOLE 40 MG/PACK PACK GT SCH ×2 (08:55→21:11)
[2020-10-14] MEDS: HYDROGEL DRESSING 90 GM TUBE TP SCH (08:55)
--- NOTE | 2020-10-14 13:43 | NUR ---
TELE/RN NOTES BP 141/76 P 69 MIDODRINE 5MG 1 TAB WAS NOT ADMINISTERED.
[2020-10-14 16:11] VITALS: BP 123/69
[2020-10-14] MEDS ORDERED: GLUCERNA 1.2 1,000 ML BOTTLE GT PRN (17:00)
--- NOTE | 2020-10-14 17:03 | NUR ---
TELE/RN NOTES BP 123/69 P 58 MIDODRINE 5MG 1 TAB WAS NOT ADMINISTERED.
[2020-10-14] MEDS: MICAFUNGIN SODIUM 100 MG in IV NS 0.9% 100 ML IV SCH (17:09)
[2020-10-14] MEDS: ONDANSETRON HCL/PF 4 MG/2 ML VIAL IVP PRN (17:53)
--- NOTE | 2020-10-14 18:23 | NUR ---
TELE/RN CLOSING NOTES PATIENT IS ON BED. ALERT AND ORIENTED X3. PATIENT IS ON TRACH AND VENT DEPENDENT AT THE PRESCRIBED SETTINGS. PATIENT IN NO APPARENT RESPIRATORY DISTRESS NOTED. NO SIGN AND SYMPTOM OF PAIN NOTED AT THIS TIME. IV ACCESS AT RIGHT UPPER ARM # 20 G WITH IV FLUID OF D5NS 1L AT 50ML/HR ON AND INFUSING WELL. TELE MONITOR READING SINUS RHYTHM 67BPM. SEEN AND EXAMINED BY MD WITH ORDERS MADE AND CARRIED OUT. ALL DUE MEDICATIONS WAS GIVEN. PATIENT VOMITED X1 ZOFRAN 4MG IV WAS GIVEN, PEG RESIDUAL 200ML FEEDING WAS WITH HELD CHRISTINA DOMINGO HEPATOLOGY PHYSICIAN WAS AWARE. WILL ENDORSED TO WHARF BUILDER FOR DOLLY.
--- NOTE | 2020-10-14 19:30 | NUR ---
POURED CONCRETE WALL TECHNICIAN NOTES RECEIVED ON BED LEFT SIDE POSITION,NON VERBAL,MOUTH WORDS ONLY,ON TRACH TO VENT,SETTINGS TOLERATED WELL.GT FEEDING ON HOLD FOR NOW,PATIENT VOMITED,WITH RESIDUAL VOLUME OF MORE THAN 200ML.HOB ELEVATED FOR ASPIRATION PRECAUTION.VANEGAS CATH IN PLACE DRAINING YELLOWISH URINE OUTPUT.WILL CONTINUE TO MONITOR STATUS.
[2020-10-14 20:00] VITALS: BP 157/78
--- NOTE | 2020-10-14 20:36 | NUR ---
RT NOTE pt received on mechanical vent with current vent settings. trached, shiley 5 xlt. vent plugged in to red outlet. alarms on and audible. airway patent. trach care performed. trach tie secure. brown secretions suctioned via trach. TX GIVEN. no sob, no resp distress. will continue to monitor t/o shift.
[2020-10-14] MEDS: SENNOSIDES 8.6 MG TABLET GT SCH (21:12)
[2020-10-14] MEDS: *INSULIN REGULAR(HUMULIN R)HUM 100 UNIT/ML VIAL SQ PRN (22:28)
--- NOTE | 2020-10-14 22:30 | NUR ---
INTERDISCIPLINARY PROFESSOR NOTES ACCU-CHECK BLOOD SUGAR CHECK 194,COVERED WITH HUMULIN R 3 UNITS PER SLIDING SCALE.
--- NOTE | 2020-10-14 22:35 | NUR ---
HOSPITALIST NOCTURNIST PHYSICIAN NOTES GT CHECK FOR RESIDUAL AND STILL AT 150ML,FEEDING HELD.CHARGE NURSE AWARE.
[2020-10-15] VITALS: BP 149/93
[2020-10-15] MEDS: ALBUTEROL HALF STRENGTH 1.25 MG/3 ML VIAL.NEB NEB SCH ×4 (02:47→14:42)
[2020-10-15] MEDS: IPRATROPIUM NEB FS 0.5 MG/2.5 ML AMPUL.NEB NEB SCH ×4 (02:47→14:42)
[2020-10-15 04:00] VITALS: BP 111/61
[2020-10-15] MEDS: BLOOD SUGAR DIAGNOSTIC 1 EACH STRIP VI SCH ×3 (05:49→16:55)
[2020-10-15] MEDS: *INSULIN REGULAR(HUMULIN R)HUM 100 UNIT/ML VIAL SQ PRN (05:51)
[2020-10-15] MEDS: IV D5/0.45 NACL 1,000 ML IV PRN (06:50)
--- NOTE | 2020-10-15 07:11 | NUR ---
FORMULA ROOM WORKER NOTES GT FEEDING RESIDUAL DOWN TO 5ML AT 0300,GT FEEDING RESUMED AT 30ML/HR RATE.CHARGE NURSE MADE AWARE.IN NO ACUTE DISTRESS
[2020-10-15 08:00] VITALS: BP 148/73
--- NOTE | 2020-10-15 08:00 | NUR ---
TELE/RN OPENING NOTES RECEIVED PATIENT ON BED AWAKE ALERT AND ORIENTED X3. PATIENT IS ON TRACH AND VENT DEPENDENT AT THE PRESCRIBED SETTINGS. NO SIGN AND SYMPTOM OF PAIN OR DISTRESS NOTED AT THIS TIME. ON GT FEEDING OF GLUCERNA AT 30 ML/HR TOLERATING WELL.HOB ELEVATED WITH ASPIRATION PRECAUTIONS. TURNED EVERY TWO HRS. WILL CONTINUE TO MONITOR.
[2020-10-15] MEDS: MIDODRINE HCL (5MG) 5 MG TABLET GT SCH ×3 (09:00→17:00)
[2020-10-15] MEDS: CARVEDILOL 3.125 MG TABLET GT SCH ×2 (09:33→17:18)
[2020-10-15] MEDS: PANTOPRAZOLE 40 MG/PACK PACK GT SCH (09:33)
[2020-10-15] MEDS: DEXAMETHASONE SOD PHOSPHATE 10 MG/ML VIAL IV SCH (09:34)
[2020-10-15] MEDS: ZINC SULFATE 220 MG CAPSULE GT SCH (09:34)
[2020-10-15] MEDS: ASCORBIC ACID 500 MG TABLET GT SCH (09:34)
--- NOTE | 2020-10-15 09:35 | NUR ---
HELD PROAMATINE DUE TO PT'S HIGH BP 148/79
[2020-10-15] MEDS: METOCLOPRAMIDE HCL 10 MG/10 ML UDC GT SCH ×3 (09:40→17:17)
[2020-10-15] MEDS: HYDROGEL DRESSING 90 GM TUBE TP SCH (09:42)
[2020-10-15] MEDS ORDERED: SUCRALFATE 1 G/10 ML UDC GT SCH (10:00)
--- NOTE | 2020-10-15 10:00 | NUR ---
CHECKED PT'S RESIDUAL AND IT WAS 100 ML.HELD PT'S GT FEEDING AND WILL RECHECK.
[2020-10-15] MEDS: HYDROCODONE/APAP 5/325MG TABLET PO PRN (10:38)
[2020-10-15] MEDS: INSULIN REGULAR, HUMAN 100 UNIT/ML 3 ML VIAL SQ PRN (11:38)
[2020-10-15] MEDS: ONDANSETRON HCL/PF 4 MG/2 ML VIAL IVP PRN (11:53)
[2020-10-15] MEDS ORDERED: PNEUMOCOCCAL 23-VAL P-SAC VAC 0.5 ML VIAL SQ ONE (12:00)
--- NOTE | 2020-10-15 12:00 | NUR ---
HELD PROAMATINE BP 156/84 HR 58
--- NOTE | 2020-10-15 12:00 | NUR ---
GT RESIDUALS IS STILL 100 ML-HELD GT FEEDING.
[2020-10-15 16:00] VITALS: BP 143/73
[2020-10-15] MEDS: MICAFUNGIN SODIUM 100 MG in IV NS 0.9% 100 ML IV SCH (17:19)
--- NOTE | 2020-10-15 17:19 | NUR ---
HELD PROAMATINE BP 143/73 HR 52
--- NOTE | 2020-10-15 18:30 | NUR ---
REPORT CALLED IN TO LAKIA BEAULIEU OF [facility] TO ROOM 25. KATHI PICC LINE REMAINS INTACT AND PATENT FOR CONTINUATION OF IV THERAPY.LATEST BLOOD SUGAR :208. GT FEEDING AND VANEGAS CATHETER REMAINS INATCT.NO S/S OF PAIN OR DISTRESS.AWAITING FOR AMBULANCE DRAG OUT MAN.
--- NOTE | 2020-10-15 19:47 | NUR ---
CALLED THE PATIENT'S SON-MARIA GUADALUPE RE: PT IS BEING D/C TO [facility] [place], ROOM 25B.
[2020-10-15 19:56] VITALS: BP 148/74
--- NOTE | 2020-10-15 20:07 | NUR ---
PATIENT D/C TO SNF,REPORTS GIVEN TO THE RT AND AMBULANCE,D/C PACKET PREPARED AND PRINTED BY CHRISTOFER Marquez AND GIVEN TO THE AMBULANCE. PHOTOS ARE ALREADY TAKEN BY CHRISTOFER Marquez AND ATTACHED TO THE CHART. COPIES OF THE MED RECON PREPARED BY CHRISTOFER Barraza AND GAVE TO THE AMBULANCE TOGETHER WITH THE PACKET. PATIENT IS BEING D/C WITH PICC LINE INTACT, WITH GT-CLAMPED, AND VANEGAS CATHETER INTACT.
== END 2020-10-15 19:55 | DRG 130 ==
LOC: ER 16:52 → TRANSITION 19:22 → TELE1 10-05 05:45 → TELE 10-06 22:16
PROVIDERS: ADMIT Internal Medicine; ATTEND Nurse Practitioner Acute Care
PROC: 5A1955Z Respiratory Ventilation, Greater than 96 Consecutive Hours (ICD-10-PCS; principal; 2020-10-04)
PROC: 05H933Z Insertion of Infusion Device into Right Brachial Vein, Percutaneous Approach (ICD-10-PCS; 2020-10-04)
PROC: 0DJ08ZZ Inspection of Upper Intestinal Tract, Via Natural or Artificial Opening Endoscopic (ICD-10-PCS; 2020-10-08)
DX: J15.6 Pneumonia due to other Gram-negative bacteria (principal); K29.01 Acute gastritis with bleeding; N17.0 Acute kidney failure with tubular necrosis; N18.9 Chronic kidney disease, unspecified; D68.59 Other primary thrombophilia; I12.9 Hypertensive chronic kidney disease with stage 1 through stage 4 chronic kidney disease, or unspecified chronic kidney disease; I21.4 Non-ST elevation (NSTEMI) myocardial infarction; Z93.0 Tracheostomy status; Z86.16 Personal history of COVID-19; K85.90 Acute pancreatitis without necrosis or infection, unspecified; E43 Unspecified severe protein-calorie malnutrition; D62 Acute posthemorrhagic anemia; I85.10 Secondary esophageal varices without bleeding; K31.89 Other diseases of stomach and duodenum; Z93.1 Gastrostomy status; R13.10 Dysphagia, unspecified; E11.22 Type 2 diabetes mellitus with diabetic chronic kidney disease; F32.9 Major depressive disorder, single episode, unspecified; Z79.4 Long term (current) use of insulin; Z79.51 Long term (current) use of inhaled steroids; Z79.899 Other long term (current) drug therapy; E46 Unspecified protein-calorie malnutrition; E78.5 Hyperlipidemia, unspecified; E86.1 Hypovolemia; I25.10 Atherosclerotic heart disease of native coronary artery without angina pectoris; E87.0 Hyperosmolality and hypernatremia; J44.0 Chronic obstructive pulmonary disease with (acute) lower respiratory infection; K22.8 Other specified diseases of esophagus; G90.8 Other disorders of autonomic nervous system; K76.0 Fatty (change of) liver, not elsewhere classified; Z87.01 Personal history of pneumonia (recurrent); Z90.49 Acquired absence of other specified parts of digestive tract; Z99.11 Dependence on respirator [ventilator] status; Z74.09 Other reduced mobility; Z74.01 Bed confinement status; R18.8 Other ascites; Y95 Nosocomial condition; K44.9 Diaphragmatic hernia without obstruction or gangrene; K76.6 Portal hypertension; L89.153 Pressure ulcer of sacral region, stage 3; J96.21 Acute and chronic respiratory failure with hypoxia; B37.9 Candidiasis, unspecified; E04.1 Nontoxic single thyroid nodule; G93.40 Encephalopathy, unspecified; K83.1 Obstruction of bile duct
CPT/HCPCS: 31720; 36415; 71045-TC; 71250-TC; 74178; 76705-TC; 80048-TC; 80076-TC; 82962-TC; 83690-TC; 83735-TC; 84100-TC; 84484-TC; 85025-TC; 85378-TC; 85730-TC; 86140-TC; 86850-TC; 87040-TC; 87081-TC; 90732; 94003-TC; 94760-TC; 94762-TC; 94799-TC; 99082-TC; A4217; A6248; A6253; A7526; C1751; C9113; G0378; J0692; J0713; J1100; J1815; J1940; J2185; J2248; J2250; J2270; J2405; J2704; J3480; J3490; J7030; J7040; J7050; J7060; J8597; Q9963; Q9967; U0003